=== PATIENT | female | born 1955 | race Native Hawaiian/Other Pacific Islander ===

== ENCOUNTER 2016-12-20 08:23 | Outpatient (CLI) | payer BC | END 2016-12-20 20:25 | disposition home or self-care (01) | LOC: MAMMO 08:23 | DX: Z12.31 Encounter for screening mammogram for malignant neoplasm of breast (principal); Z01.419 Encounter for gynecological examination (general) (routine) without abnormal findings | CPT/HCPCS: G0202-TC ==

== ENCOUNTER 2017-01-01 13:51 | Outpatient (CLI) | payer BC | END 2017-01-01 19:08 | disposition home or self-care (01) | LOC: MAMMO 13:51 | DX: R92.8 Other abnormal and inconclusive findings on diagnostic imaging of breast (principal) | CPT/HCPCS: G0206-TC ==

== ENCOUNTER 2018-01-21 14:57 | Outpatient (CLI) | payer BC | END 2018-01-21 22:08 | disposition home or self-care (01) | LOC: MAMMO 14:57 | DX: Z12.31 Encounter for screening mammogram for malignant neoplasm of breast (principal) ==

== ENCOUNTER 2019-09-22 15:15 | Outpatient (CLI) | payer OTHER | END 2019-09-22 20:50 | disposition home or self-care (01) | LOC: MAMMO 15:15 | DX: Z12.31 Encounter for screening mammogram for malignant neoplasm of breast (principal) ==

== ENCOUNTER 2020-12-27 08:23 | Outpatient (CLI) | payer OTHER | END 2020-12-27 21:15 | disposition home or self-care (01) | LOC: MAMMO 08:23 | PROVIDERS: ATTEND Nurse Practitioner Family | DX: Z12.31 Encounter for screening mammogram for malignant neoplasm of breast (principal) ==